=== PATIENT | female | born 1980 | race Caucasian/White ===

== ENCOUNTER 2018-11-01 18:19 | Emergency (ER) | payer OTHER ==
[~2018-11-01 18:19] MED LIST: ALB0.5 INH; ALBU8.5H12 IH; Docusate Sodium PO; FAM20 PO; METO-566 PO; OND4 PO; ONDA4TAB PO; PARO-46 PO; PER PO; PRE20 PO; PREN-85 PO; PROM12.546 PO; unisom PO; vitamin B-6 PO
[2018-11-01] MEDS ORDERED: BUPR-124 (18:26)
--- NOTE | 2018-11-01 18:29 | ER Report ---
History and Physical Time Seen By MD: 18:25 Hx. of Stated Complaint: PT REPORTS L EAR PAIN THAT STARTED FRIDAY, FEVERS INTERMITTENTLY HPI/ROS CHIEF COMPLAINT: Left ear pain HISTORY OF PRESENT ILLNESS: This is a 37-year-old female who presents emergency Department with left ear pain. Patient states that she regularly cleans her ears, she states maybe she became a little too aggressive with cleaning her left ear yesterday and has developed some swelling and pain to the left ear. No fevers or chills. No nausea or vomiting. There is also a slight muffling of sound from the left ear. REVIEW OF SYSTEMS: Respiratory: No cough, no dyspnea. ENT: As above. Cardiovascular: No chest pain, no palpitations. Gastrointestinal: No vomiting, no abdominal pain. Musculoskeletal: No back pain. Allergies: Coded Allergies: No Known Drug Allergies (Verified , 11/01/18) Home Meds Active Scripts Ciprofloxacin 500 Mg Tab (CIPROFLOXACIN 500 MG TAB) 500 Mg Tablet, 500 MG PO Q12H for 6 Days, #12 TAB 0 Refills Prov:KIRA MCKAY CHUCK BONER-BC 11/01/18 Reported Medications Bupropion Hcl (BUPROPION XL) 150 Mg Tab.er.24h, QDAY 11/01/18 Albuterol Sul Hfa 90 Mcg 8 Gm (VENTOLIN HFA 90 MCG 8 GM) 8.5 Gm Hfa.aer.ad, 1-2 PUFF IH QWK 08/17/13 Paroxetine Hcl (PAROXETINE HCL) 20 Mg Tablet, 20 MG PO QDAY 08/17/13 Discontinued Scripts Oxycodone/Acetaminophen (OXYCODONE/ACETAMINOPHEN 5MG/325 MG) 1 Tab Tab, 1-2 TAB PO Q4H PRN for MODERATE PAIN, #30 TAB 0 Refills Prov:ADAM TRUJILLO MD 08/19/13 [Docusate Sodium] 100 MG CAP No Conflict Check, 100 MG PO BID, CAP Prov:ADAM TRUJILLO MD 08/19/13 Past Medical/Surgical History He does patient has a past medical surgical history of asthma, hyperthyroidism, C-sections 2, depression, cholecystectomy. Reviewed Nurses Notes: Yes Hx Substance Use Disorder: No Hx Alcohol Use: No Constitutional Vital Sign - Last 24 Hours 11/01/18 11/01/18 18:20 18:58 Temp 98.1 Pulse 95 90 Resp 16 16 B/P (MAP) 112/68 106/66 (79) Pulse Ox 93 97 O2 Delivery Room Air Room Air Physical Exam General Appearance: The patient is alert, has no immediate need for airway protection and no current signs of toxicity. Eyes: Pupils equal and round no injection. Ears: Right tympanic membrane, pearly stovall, landmarks noted, no signs of injection or erythema, left TM is not visualized due to the patient's otitis externa, there is swelling to the external canal, tragus. Very painful to touch, mild erythema. Respiratory: Chest is non tender, lungs are clear to auscultation. Cardiac: regular rate and rhythm. Gastrointestinal: Abdomen is soft and non tender, no masses, bowel sounds normal. Musculoskeletal: Neck: Neck is supple and non tender. Extremities have full range of motion and are non tender. Skin: No rashes or lesions. DIFFERENTIAL DIAGNOSIS: After history and physical exam differential diagnosis was considered for otitis media, otitis externa, Eb's angina. Medical Decision Making ED Course/Re-evaluation ED Course The patient was admitted to room. A history and physical were obtained. Differential diagnoses were considered. After examination patient, did determine that she has left otitis externa, we do not have otic preparations in the ER, the patient was placed on ciprofloxacin, the antibiotics were started in the ER, a prescription was sent to the patient's pharmacy. Patient was given topical lidocaine to use on the areas on the external areas see if this provides some relief. She will follow-up with her primary care provider this week for reevaluation, patient had no other questions or concerns was agreeable with this plan of care and discharged home. Decision to Disposition Date: Nov 01, 2018 Decision to Disposition Time: 18:51 Depart Departure Latest Vital Signs Vital Signs Date Time Temp Pulse Resp B/P (MAP) Pulse Ox O2 Delivery O2 Flow Rate FiO2 11/01/18 18:58 90 16 106/66 (79) 97 Room Air 11/01/18 18:20 98.1 Impression: Primary Impression: Otitis externa Condition: Improved Disposition: HOME OR SELF-CARE New Scripts Ciprofloxacin 500 Mg Tab (CIPROFLOXACIN 500 MG TAB) 500 Mg Tablet 500 MG PO Q12H for 6 Days, #12 TAB 0 Refills Prov: KIRA MCKAY CHUCK BONER-BC 11/01/18 Patient Instructions: Otitis Externa (ED) Additional Instructions: You have an ear infection of the external ear canal, this is likely from vigorous cleaning introducing bacteria into a break in the skin. Please be cautious when cleaning her ears. Take the antibiotics as prescribed. Get plenty of rest. You can try and apply a thin film of the lidocaine to the exterior part of the ear where there is swelling this may provide some relief, did not place any of the lidocaine into the canal. Take ibuprofen or Tylenol as needed for pain. Follow-up with your primary care provider within one week for reevaluation. Return to the ER for any concerns or worsening symptoms. Problem Qualifiers Primary Impression: Otitis externa Otitis externa type: other infective Chronicity: acute Laterality: left Qualified Codes: H60.392 - Other infective otitis externa, left ear KIRA MCKAY-BC Nov 01, 2018 18:29
[2018-11-01] MEDS ORDERED: CIPROFLOXACIN 500 MG TAB PO ONE (18:50)
[2018-11-01] MEDS ORDERED: LIDOCAINE 2% VISC SLN 15ML UDC PO ONE (18:50)
[2018-11-01] MEDS ORDERED: CIPR-214 PO (18:56)
[2018-11-01 18:58] VITALS: BP 106/66
== END 2018-11-01 19:18 | disposition home or self-care (01) ==
LOC: ER 18:24
DX: H60.392 Other infective otitis externa, left ear (principal)
CPT/HCPCS: 99283